=== PATIENT | female | born 1970 | race Caucasian/White ===

== ENCOUNTER → 2016-11-05 | Outpatient (CLI) | payer OTHER ==
--- NOTE | 2016-11-05 16:18 | EKG ---
[address] [address] Measurements Intervals [place] Rate: 81 P: 84 CT: 160 QRS: 69 QRSD: 75 T: 74 QT: 346 QTc: 383 Interpretive Statements SINUS RHYTHM POSSIBLE RIGHT ATRIAL ENLARGEMENT No previous ECG available for comparison Electronically Signed On 11-05-16 17:33:08 [facility] by Milan Hernandez [email or web address]
[2016-11-05 16:37] LABS: BASOPHILS # (AUTO) 0.03 10*3/UL; BASOPHILS % (AUTO) 0.5 % (0-1); EOSINOPHILS % (AUTO) 0.9 % (0-8); HEMATOCRIT 42.4 % (37.0-47.0); HEMOGLOBIN 14.5 g/dL (12.0-16.0); IMM GRAN % (AUTO) 0.2 % (0-5); IMM GRAN# (AUTO) 0.01 10*3/UL; LYMPHOCYTES # (AUTO) 2.13 10*3/uL; MEAN CORPUSCULAR HEMOGLOBIN 30.4 PG (27-31); MEAN CORPUSCULAR HGB CONC 34.2 g/dL (33-37); MONOCYTES # (AUTO) 0.51 10*3/UL (0.3-0.8); MONOCYTES % (AUTO) 8.9 % (5-15); NEUTROPHILS # (AUTO) 3.03 10*3/UL; NEUTROPHILS % (AUTO) 52.5 % (50-80); RDW COEFFICIENT OF VARIATION 13.2 % (11.5-14.5); RED BLOOD COUNT 4.77 10^6/uL (4.20-5.40); WHITE BLOOD COUNT 5.76 10^3/uL (4.8-10.8)
[2016-11-05 16:39] LABS: PLATELET MORPHOLOGY COMMENT NORMAL MORPHOLOGY (NORM)
[2016-11-05 16:47] LABS: ASPARTATE AMINO TRANSFERASE 25 IU/L (8-39); BILIRUBIN,TOTAL 0.7 mg/dL (0.3-1.2); BLOOD UREA NITROGEN 21 mg/dL (7-22); BUN/CREATININE RATIO 26.25 (6-20); CALCIUM 9.6 mg/dL (8.7-10.7); CHLORIDE 101 meq/L (98-112); CREATININE 0.8 mg/dL (0.50-1.20); EST GLOMERULAR FILTRATION > 60 (>60 ml/min/1.73m(2)); GLUCOSE 99 mg/dL (78-110); POTASSIUM 3.8 meq/L (3.8-5.2); SODIUM 141 meq/L (135-145); TOTAL PROTEIN 8.2 g/dL (6.1-8.0)
[2016-11-05 17:11] LABS: CREATINE KINASE MB 0.56 NG/DL (0.00-5.00)
[2016-11-05 17:14] LABS: TROPONIN I < 0.012 ng/mL (< 0.040)
--- NOTE | 2016-11-05 19:41 | DI ---
PA /LATERAL CHEST X-RAY, 11/05/2016 5:26 PM : Clinical History: Chest pain (pleuritic) with breathing. Previous Exam: None at this facility. There is no acute soft tissue or bony abnormality. Heart size is normal. Lungs are clear. Mediastinal structures are normal. There are no pulmonary nodules. Reading: Normal chest x-ray.
== END ==
LOC: EKG 16:13
PROVIDERS: ATTEND Physician Assistant
DX: R07.1 Chest pain on breathing (principal); R06.02 Shortness of breath
CPT/HCPCS: 36415; 71020; 80053; 82553; 84484; 85025; 85379; 93005; 93010